=== PATIENT | female | born 1980 | race Caucasian/White ===

== ENCOUNTER 2019-09-10 23:07 | Emergency (ER) | payer MEDICAID, SELFPAY ==
--- NOTE | 2019-09-10 00:30 | RAD_ITS ---
STUDY: X-RAY CHEST REASON FOR EXAM: Female, 39 years old. cough, sob, body aches, diarrhea, chest pain, sore throat x 1 week TECHNIQUE: Frontal view COMPARISON: None. FINDINGS: The lungs are clear and expanded. There is no demonstrated pleural abnormality. Normal size heart. Normal mediastinum and alexia. Normal visualized pulmonary arteries. Normal visualized aortic arch and descending thoracic aorta. Normal visualized thoracic spine. Normal visualized ribs, clavicles, and shoulders. There is no demonstrated abnormality of the visualized soft tissue structures of the upper abdomen. RAD/Chest 1 View (Portable) IMPRESSION: Normal x-ray examination of the chest. Electronically Signed: Nishant Hurtado MD at 0:53 EDT , Service support ,
[2019-09-10 23:09] VITALS: BP 137/80; PULSE 113; RESP 18; TEMP 36.7; O2SAT 98; BMI 44.2
[2019-09-10 23:12] VITALS: BP 137/80; PULSE 113; RESP 18; TEMP 36.7; O2SAT 98
--- NOTE | 2019-09-10 23:25 | EKG12_ITS ---
Test Reason : SOB Blood Pressure : / mmHG Vent. Rate : 108 BPM Atrial Rate : 108 BPM P-R Int : 168 ms QRS Dur : 074 ms QT Int : 330 ms P-R-T Axes : 038 002 030 degrees QTc Int : 442 ms Sinus tachycardia Cannot rule out Anterior infarct , age undetermined Abnormal ECG Confirmed by BYRON MARIE, COLLIN ([id number]), multimedia editor DANA ARAUJO ([id number]) on 09/13/2019 1:09:43 PM Referred By: KELVIN Confirmed By:COLLIN MATTHEWS MD
--- NOTE | 2019-09-10 23:27 | ED.DCSUM_ITS ---
History of Present Illness Chief Complaint: Cough Narrative: Patient presents with cough congestion slight difficulty breathing for 2 days. No reported fevers but she had does have some decreased in taste. She has some loose stools. No known contacts with COVID patients. She denies chest pain. She has no DVT or PE risk factors. Past Medical History - Allergies and Home Meds Allergies/Adverse Reactions: Allergies No Known Allergies Allergy (Verified 09/10/19 23:12) Primary Care Physician: [facility] Doctor,Out of [NON-STAFF] - Past Medical History: - - Type 2 diabetes, polycystic ovarian disease Smoking Status: Current every day smoker Review of Systems General: Denies: Fever Eyes: Denies: Visual changes - bilaterally ENT: Reports: - - Some upper airway congestion Cardiovascular: Denies: Chest pain Respiratory: Reports: Dyspnea, Cough Gastrointestinal: Reports: Diarrhea. Denies: Abdominal pain Genitourinary: Denies: Dysuria Musculoskeletal: Denies: Myalgias Skin: Denies: Rash Neurological: Denies: Headache, Weakness, Parasthesia Endocrine: Denies: Polyuria, Polydipsia Hematologic: Denies: Easy bruising, Easy bleeding Allergy: Denies: Swelling of the mouth Physical Exam Vital Signs/Narrative: Vital Signs Temp Pulse Resp BP Pulse Ox 09/10/19 23:12 98.1 F 113 H 18 137/80 H 98 09/10/19 23:09 98.1 F 113 H 18 137/80 H 98 General: Well nourished, Well developed Eyes: Perrl, EOMI ENT: Moist mucous membranes Neck: Supple Cardiovascular: Regular rhythm, No murmurs, Tachycardia Respiratory: - - Some scant end expiratory wheezing Abdomen: Soft Back: Nontender, Normal Inspection Extremities: Nontender, No edema Skin: Normal color Neurological: Alert, Normal Strength, Normal Sensation Psychological: Normal affect Diagnostic/Tx/Re-eval - Rhythm Strip Rhythm Strip: Sinus Rhythm Rate: 108 Ectopy: None - EKG Initial EKG Interpretation: - - Is tachycardia with a rate of 108. Normal MS and QTc intervals. No ischemic changes. Interpreted by emergency doctor - Medical Decision Making Patient has a normal work-up, she may have COVID although I do not have the results back. She is told to quarantine at this time she does not work and understands this. I will discharge her in stable condition if she worsens she needs to return at this time she is oxygenating well she slightly tachycardic but otherwise she has normal vitals she has a normal d-dimer and there are no signs of pneumonia on the x-ray and no other signs or symptoms to treat with antibiotics. ED Disposition - Plan for ED Patient: Disposition: Home or Assisted Living Instructions: ED Upper Resp Infec No Abx Tx Prescriptions: Albuterol IH (ProAir) [Proair Hfa (SP)Vent Pts] 1 puff INHALATION Q4H PRN PRN #1 inhaler PRN Reason: Cough Prescription Printed Guaifenesin [Tussin] 100 mg PO BID #100 ml Prescription Printed Referrals: [facility] Doctor,Out of [NON-STAFF] - 3-5 Days
[2019-09-10] MEDS: 0.9% Normal Saline 1,000 ML 999 ML IV (23:50)
[2019-09-11] MEDS: Ipratropium/Albuterol Sulfate 3 ML AMPUL.NEB INHALATION (00:01)
[2019-09-11 00:02] VITALS: PULSE 92; RESP 20; O2SAT 94
[2019-09-11 00:07] LABS: Absolute Neutrophil Count 13.1 X10^3/uL (2.0-7.7); Basophil# 0.09 X10^3/uL; Basophil% 0.5 % (0-1); Eosinophil# 0.56 X10^3/uL; Eosinophils% 3.2 % (0-5); Hematocrit 39.9 % (37-47); Lymphocyte % 15.4 % (19-41); Mean Corp Hgb Conc 32.6 g/dL (32-36); Mean Corpuscular Volume 89.1 fL (81-99); Monocyte# 1.06 X10^3/uL; NRBC Flagged by Analyzer 0 % (0-5); Neutrophil # 13.08 X10^3/uL (2.7-7.7); Neutrophil % 74.4 % (47-70); Platelet Count 358 K/mm3 (150-450); RBC Distribution Width CV 13.2 % (11.6-14.6); RBC Distribution Width SD 42.6 fl (35.1-43.9); Red Blood Count 4.48 M/mm3 (4.2-5.4); White Blood Count 17.6 K/mm3 (4.4-11.0)
[2019-09-11 00:21] LABS: ALB/GLOB Ratio 0.8 RATIO (0.9-2.4); AST(SGOT) 12 U/L (15-37); Alanine Aminotransfer ALT/SGPT 16 U/L (13-56); Albumin, Serum 3.3 g/dL (3.2-5.0); Alkaline Phosphatase 82 U/L (45-117); Anion Gap 2 (5-15); BUN 8 mg/dL (7-18); BUN/Creat Ratio 9.7 RATIO (10-20); Calcium,Total 8.5 mg/dL (8.5-10.1); Chloride 108 mmol/L (98-107); Creatinine, Serum 0.83 mg/dL (0.55-1.02); D-Dimer Quantitative (DVT/PE) 0.32 FEU/ug/m (0.27-0.49); EST Glomerular Filtration Rate 81 mL/min (>60); Est Glom Filt Rate - Afr Amer 98 mL/min (>60); Estimated Creatinine Clearance 77.02 ml/min; Globulin 3.9 g/dL (2.2-4.2); Glucose 99 mg/dL (74-106); Potassium 4.1 mmol/L (3.5-5.1); Protein, Total 7.2 g/dL (6.4-8.2); Sodium Level 139 mmol/L (136-145)
[2019-09-11 01:17] LABS: Probe Check PASS; Specimen Processing Control PASS
[2019-09-11 01:26] VITALS: BP 135/82; PULSE 101; RESP 16; O2SAT 99
[2019-09-11 01:43] VITALS: BP 128/82; PULSE 101; RESP 16; O2SAT 99
== END 2019-09-11 01:44 | disposition home or self-care (01) ==
PROVIDERS: Emergency Provider Emergency Medicine
DX: R05 Cough (principal); R06.00 Dyspnea, unspecified; R09.81 Nasal congestion; R19.7 Diarrhea, unspecified; E11.9 Type 2 diabetes mellitus without complications; E28.2 Polycystic ovarian syndrome; F17.200 Nicotine dependence, unspecified, uncomplicated
CPT/HCPCS: 71045; 80053; 85025; 85379; 87635; 93005; 94640; 94799; 96360; 96361; 99284; J7030; A4216; U0003

== ENCOUNTER → 2020-01-11 08:37 | Outpatient (CLI) | payer MEDICAID, SELFPAY ==
--- NOTE | 2020-01-11 08:52 | BI_ITS ---
MAMMOGRAPHY - BILATERAL SCREENING REASON FOR EXAM: Female, 39 years old. Routine annual screening examination. PERTINENT HISTORY: Breast survey exam TECHNIQUE: Digital bilateral breast kaci (3D mammographic acquisition) in the CC and MLO projections. 2-D mediolateral oblique (MLO) and craniocaudad (CC) views of both breasts were obtained. CAD: Full Field Digital Mammography with Computer Added Detection was performed. COMPARISON: Previous mammogram obtained on 03/15/2014 FINDINGS: Breast Composition: Fatty There are no dominant masses or suspicious calcifications. No other significant abnormalities are identified. BI/SCREEN MAMM (CAD) W/KACI BILAT IMPRESSION: Stable bilateral screening mammogram. Yearly follow-up mammogram recommended. (A) ASSESSMENT CATEGORY: BIRADS Category 1: Negative. A letter regarding these results will be sent to the patient by the facility within 30 days. Approximately 10% of breast cancers are not detected by mammography. A normal mammogram should not delay biopsy of a clinically suspicious abnormality. [id number] Electronically Signed: Nando Mcmahan, at 18:00 EST Tel , Service support ,
== END ==
DX: Z12.31 Encounter for screening mammogram for malignant neoplasm of breast (principal)
CPT/HCPCS: 77063; 77067

== ENCOUNTER 2020-08-24 23:04 | Emergency (ER) | payer MEDICAID, SELFPAY ==
[2020-08-24 23:05] VITALS: BP 153/88; PULSE 127; RESP 18; TEMP 36.4; O2SAT 98; BMI 37.9
--- NOTE | 2020-08-24 23:55 | EX.ED.DYSGE1 ---
HPI History of Present Illness Chief Complaint: Cellulitis Informant: patient Onset/Context/Timing Onset: Days (2) Context: Gradual Onset Timing: Continuous Quality: painful Location: R forefoot Current Severity: Severe Maximum Severity: Severe Worsened by: anything touching affected area Relieved by: taking sock, shoe off Associated Symptoms Associated Symptoms: none Narrative Narrative: 39-year-old type II diabetic states she believes she is having cellulitis in the right foot. She has had some dry skin with splits in the skin, and she states that on her great toe in conjunction with what may have been soreness near the side of her toenail she thinks is where it started. Now it is in her entire forefoot. This is similar to how she had cellulitis started on her left lower leg in the past which led to a weeklong hospitalization with IV antibiotics. She denies any systemic symptoms or fevers. No pain proximal to the foot. She states her sugars have been under relative control. [facility] Medical History Diabetes High cholesterol PCOS (polycystic ovarian syndrome) Home Medications cephalexin 500 mg PO Q6 #40 capsule 08/25/20 [Rx Last Taken Unknown] Allergy/AdvReac Type Severity Reaction Status Date / Time No Known Allergies Allergy Verified 08/24/20 23:08 Social History Smoking Status: Current every day smoker tobacco type: cigarettes ROS ROS ED Constitutional Constitutional ED: Denies chills or fever(s) Musculoskeletal Musculoskeletal: Reports extremity pain; Denies neck pain Integumentary Reports as per HPI and rash; Denies Abrasions or wounds Neurologic Neurologic: Denies paresthesias or weakness EXAM Physical Exam Const Vital Signs: 08/24/20 23:05 08/24/20 23:14 Temperature 97.6 F L Temperature Source Temporal Pulse Rate 127 H Respiratory Rate 18 Respiratory Effort Normal Non-Labored Respiratory Pattern Normal Blood Pressure 153/88 H Blood Pressure Mean 109 Pulse Ox 98 Oxygen Delivery Method Room Air Positive well nourished and well developed General Appearance ED: well developed and NAD Neck full ROM and supple Back/Spine normal ROM and normal to inspection Extremity Extremity Narrative: Very tender erythema right forefoot with localized swelling. No lymphangitis. Limited range of motion of her toes due to pain but joints do not appear to be focally affected. No calf tenderness or palpable cords in the calf or thigh, no inguinal lymphadenopathy. Neuro oriented x3, no focal motor deficits and no sensory deficits noted Sensorium / Orientation: alert Psych mental status grossly normal and thought process normal Skin no wounds Skin Narrative: Very tender and diffusely swollen erythema right forefoot, no fluctuance or abscess noted. No obvious nidus for infection. Skin is dry, no deep splits, no evidence for foreign body, entire forefoot is affected and tender including all toes except for the fifth. MDM MDM MDM Narrative Medical decision making narrative: Clinically this appears to be more likely a strep etiology, unlikely abscess/MRSA. She was treated with IV vancomycin and started on cephalosporin treatment as an outpatient, but I also gave her a dose of cefazolin IV as well here to get it started since it is [employer] research and strategic analysis. I think she can be treated as an outpatient to begin with, but treated her aggressively with these IV antibiotics given her past history. Lab Data Labs: Laboratory Results - last 24 hr 08/24/20 08/24/20 23:50 23:50 WBC 10.5 RBC 4.81 Hgb 13.7 Hct 40.9 MCV 85.0 MCH 28.5 MCHC 33.5 RDW Std Deviation 37.6 RDW Coeff of Fernando 12.2 Plt Count 361 MPV 9.3 Immature Gran % (Auto) 0.400 Neut % (Auto) 60.3 Lymph % (Auto) 31.5 [place] % (Auto) 5.2 Eos % (Auto) 1.9 Baso % (Auto) 0.7 Absolute Neuts (auto) 6.3 Absolute Lymphs (auto) 3.29 Nucleated RBC % 0 Sodium 135 L Potassium 3.6 Chloride 102 Carbon Dioxide 29.0 Anion Gap 4 L BUN 7 Creatinine 0.79 Estim Creat Clear Calc 80.92 Est GFR (MDRD) Af Amer 103 Est GFR (MDRD) Non-Af 85 BUN/Creatinine Ratio 8.9 L Glucose 311 H Calcium 8.5 Discharge Plan Triage Chief Complaint: Cellulitis ED Provider: Satnam Holm Dx/Rx/DC Orders Clinical Impression: Cellulitis of foot, right Instructions: ED Cellulitis Prescriptions: New cephalexin [cephalexin] 500 MG capsule 500 mg PO Q6 Qty: 40 RF: 0 Primary Care Provider: Care Physician,No Primary Referrals: Naeem Marie MD [STAFF PHYSICIAN] - 3-5 Days (or return to ER if worsening before then) Care Physician,No Primary [Primary Care Provider] - Disposition Disposition: Home, Self Care
[2020-08-25] MEDS: Ketorolac 15 MG/ML Vial IV (00:01)
[2020-08-25 00:02] LABS: Absolute Lymphocyte Count 3.29 X10^3/uL (0.83-4.51); Absolute Neutrophil Count 6.3 X10^3/uL (2.0-7.7); Basophil# 0.07 X10^3/uL; Basophil% 0.7 % (0-1); Eosinophils% 1.9 % (0-5); Hematocrit 40.9 % (37-47); Hemoglobin 13.7 g/dL (12.0-15.0); Lymphocyte # 3.29 X10^3/ul (0.83-4.51); Lymphocyte % 31.5 % (19-41); Mean Corp Hgb Conc 33.5 g/dL (32-36); Mean Corpuscular Hgb 28.5 pg (27.0-32.0); Mean Platelet Vol. 9.3 fl (6.2-12.0); Monocyte# 0.54 X10^3/uL; Monocyte% 5.2 % (0-10); NRBC Flagged by Analyzer 0 % (0-5); Neutrophil # 6.31 X10^3/uL (2.7-7.7); Neutrophil % 60.3 % (47-70); Platelet Count 361 K/mm3 (150-450); RBC Distribution Width CV 12.2 % (11.6-14.6); RBC Distribution Width SD 37.6 fl (35.1-43.9); Red Blood Count 4.81 M/mm3 (4.2-5.4); White Blood Count 10.5 K/mm3 (4.4-11.0)
[2020-08-25] MEDS: Cefazolin 1 GM/50 ML BAG IV (00:02)
[2020-08-25 00:14] LABS: Anion Gap 4 (5-15); BUN 7 mg/dL (7-18); BUN/Creat Ratio 8.9 RATIO (10-20); Calcium,Total 8.5 mg/dL (8.5-10.1); Chloride 102 mmol/L (98-107); Creatinine, Serum 0.79 mg/dL (0.55-1.02); EST Glomerular Filtration Rate 85 mL/min (>60); Est Glom Filt Rate - Afr Amer 103 mL/min (>60); Estimated Creatinine Clearance 80.92 ml/min; Glucose 311 mg/dL (74-106); Potassium 3.6 mmol/L (3.5-5.1); Sodium Level 135 mmol/L (136-145)
[2020-08-25 03:25] VITALS: BP 146/68; PULSE 78; RESP 18; O2SAT 96
== END 2020-08-25 03:27 | disposition home or self-care (01) ==
PROVIDERS: Emergency Provider Emergency Medicine
DX: L03.115 Cellulitis of right lower limb (principal); E11.9 Type 2 diabetes mellitus without complications; E28.2 Polycystic ovarian syndrome; F17.210 Nicotine dependence, cigarettes, uncomplicated
CPT/HCPCS: 80048; 85025; 96365; 96366; 96367; 96375; 99284; J7040; J7050; A4216